=== PATIENT | female | born 1965 | race Caucasian/White ===

== ENCOUNTER 2018-12-09 11:21 | Emergency (ER) | payer OTHER ==
[~2018-12-09] VITALS: Ht 157.5 cm; Wt 64.4 kg
[2018-12-09] MEDS ORDERED: ATORVASTATIN CA40 MG (11:28)
[2018-12-09] MEDS ORDERED: CITALOPRAM HBR40 MG (11:28)
[2018-12-09] MEDS ORDERED: METFORMIN HCL500 MG (11:29)
[2018-12-09] MEDS ORDERED: RESTORIL30 M1 (11:29)
== END 2018-12-09 20:51 | disposition home or self-care (01) ==
LOC: ER 11:21
DX: M54.2 Cervicalgia (principal)